=== PATIENT | male | born 1950 | race Caucasian/White ===

== ENCOUNTER → 2024-01-10 13:04 | Outpatient (REF) | payer OTHER, SELFPAY | LOC: PAVMRI 13:04 | PROVIDERS: ATTENDING PHYSICIAN Orthopaedic Surgery; FAMILY PHYSICIAN Family Medicine | DX: M25.551 Pain in right hip (principal); M25.559 Pain in unspecified hip | CPT/HCPCS: 73721 ==

== ENCOUNTER 2025-03-29 10:28 | Emergency (ER) | payer OTHER, SELFPAY ==
--- NOTE | 2025-03-29 11:23 | ED.GENMED ---
History of Present Illness
General
Chief Complaint: Fall
Source: patient
Exam Limitations: none
Time Seen by Provider: 03/29/25 11:08
Nursing documentation reviewed up to this point in time: agreed with
History of Present Illness
History of Present Illness:
74-year-old male diabetic trip and fall walking his dog street 4 days ago fell on a root struck his left ribs on the ground having pain worse with movement and deep breath no hemoptysis no vomiting, minimal relief with Motrin no neck pain no head
strike
Past History
Past History
ED Past Medical History: NIDDM; Negative Asthma, HTN or Hypercholesterolemia
ED Past Surgical History: Appendectomy
Social History
Tobacco: Former smoker
Alcohol: None
Drug: None
Personal:
Living: with family
Employment: Retired
Family History
Family History: Other (Noncontributory)
Review of Systems
Review of Systems
All Other Systems: Not applicable
Respiratory: Reports trouble breathing; Denies cough or hemoptysis
Cardiac: Reports chest pain (Chest wall pain)
ABD/GI: Reports no symptoms
Musculoskeletal: Reports muscle stiffness
Endocrine: Reports no symptoms
Hematologic/Lymphatic: Reports no symptoms
Phy Exam
Physical Exam
Physical Exam:
Physical Exam
General: no apparent distress, not acutely ill
Neck: No posterior neck pain no tongue bite
Heart: s1/s2 regular rate and rhythm, no murmur. equal radial pulses.
Lungs: no acute respiratory distress. clear bilaterally point tender in the left lateral lower rib
Abdomen: Soft nontender
Neuro: alert and oriented. no focal neurological deficits
Skin: no rash
Psychiatric: well kept. interactive and cooperative
Extremities: no edema.
Course
Orders/Labs/Results
Orders:
Orders
03/29/25 10:35
CR Ribs-left 3 Vw W/pa Chest Urgent
Comment:
Reason For Exam: fall, anterior L rib pain
Vital Signs
Initial and Last Documented VS:
Initial Vital Signs
Temp Pulse Resp Pulse Ox
97.9 F 66 16 98
03/29/25 10:32 03/29/25 10:32 03/29/25 10:32 03/29/25 10:32
Last Documented Vital Signs
Temp Pulse Resp Pulse Ox
97.9 F 66 16 98
03/29/25 10:32 03/29/25 10:32 03/29/25 10:32 03/29/25 10:32
MDM/Problems Addressed
Differential Diagnosis Includes:
Rib fracture chest bruise pneumothorax doubt splenic injury or other intra-abdominal injury
MDM/Problems Addressed:
Rib pain after a fall
Chronic conditions affecting care: DM
Acute Exacerbation and/or Progression of Chronic Illness: DM
*Radiology
Radiology exam reviewed: radiology read reviewed
*Pulse Oximetry
SaO2: 98
Oxygen Mode of Delivery: Room air
Patient hypoxic: no
*Critical Care Note
Total Time (30-74mins, 75-104mins- exclusive of procedures): Not Applicable
Update Note
Update Note:
Update patient well-appearing oxygenating fine abdomen is soft and nontender x-ray noted
ED Attending Note
-
Portions of this chart may have been created with voice recognition software.� Occasional wrong word or��sound alike� substitutions may have occurred due to the inherent limitations of voice recognition software.
Discharge Plan
Departure
Patient Disposition: Home (Routine Discharge)
Date of Disposition: 03/29/25
Time of Disposition: 11:25
Patient with high blood pressure during this ER visit?: No
Condition: Good
Discharge Problem:
Contusion of anterior chest wall
Instructions: Rib fracture or bruised rib - ED discharge instructions
Prescriptions:
New
oxycodone 5 mg tablet
5 mg PO Q6H PRN (Reason: Pain) Qty: 14 0RF
No Action
atorvastatin 80 MG tablet
80 mg PO QPM Qty: 30 0RF
clopidogrel 75 MG tablet
75 mg PO DAILY Qty: 90 0RF
aspirin 81 MG tablet,delayed release (DR/EC)
81 mg PO DAILY Qty: 90 0RF
metformin 500 MG tablet
500 mg PO DAILY
Referrals:
Jass Leone DO [Family Provider, Family Practice]
Activity Restrictions/Additional Instructions:
Return to the ER if worsening symptoms
Interventions
Interventions:
*Risk Screen - Suicide Last Done: 03/29/25 10:32
*General Assessment Last Done: 03/29/25 10:32
*Neglect/Abuse Screening Last Done: 03/29/25 10:32
*ED- Fall Risk Assessment Last Done: 03/29/25 10:57
*ED COVID-19 Vaccine History Last Done: 03/29/25 10:32
ED-Musculoskeletal Assessment Last Done: 03/29/25 10:57
ED- Neurological Assessment Last Done: 03/29/25 10:57
ED-Skin Assessment Last Done: 03/29/25 10:57
Discharge Date and Time
Print Language: CROATIAN
[2025-03-29] MEDS: TYLENOL 1000 MG PO (11:34)
== END 2025-03-29 12:01 | disposition home or self-care (01) ==
LOC: EMR 10:28
PROVIDERS: EMERGENCY PHYSICIAN Emergency Medicine; FAMILY PHYSICIAN Student in an Organized Health Care Education/Training Program
DX: S20.212A Contusion of left front wall of thorax, initial encounter (principal); R07.89 Other chest pain; W01.0XXA Fall on same level from slipping, tripping and stumbling without subsequent striking against object, initial encounter; Y93.K1 Activity, walking an animal; E11.40 Type 2 diabetes mellitus with diabetic neuropathy, unspecified; E78.5 Hyperlipidemia, unspecified; B02.9 Zoster without complications; F41.9 Anxiety disorder, unspecified; F32.A Depression, unspecified; Z87.891 Personal history of nicotine dependence
CPT/HCPCS: 99283; 71101